=== PATIENT | female | born 1980 | race American Indian/Alaskan Native ===

== ENCOUNTER 2022-01-11 23:32 | Emergency (ER) | payer OTHER, BC ==
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
[2022-01-12] MEDS: KETOROLAC 30 MG/1 ML INJ IV ONE (01:00)
[2022-01-12] MEDS: MORPHINE 4 MG/1 ML INJ IV ONE (01:00)
[2022-01-12] MEDS: ONDANSETRON 4 MG/2 ML INJ IV ONE (01:00)
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
[2022-01-12 04:48] VITALS: BP 152/70
== END 2022-01-12 03:20 | disposition home or self-care (01) ==
LOC: ED 23:32
DX: S13.4XXA Sprain of ligaments of cervical spine, initial encounter (principal); M54.50 Low back pain, unspecified; V89.2XXA Person injured in unspecified motor-vehicle accident, traffic, initial encounter; Y93.89 Activity, other specified; Y92.89 Other specified places as the place of occurrence of the external cause; Y99.8 Other external cause status
CPT/HCPCS: 71046; 72100; 72125; 96374; 96375; 99284; J1885; J2270; J2405; 99285